=== PATIENT | female | born 1945 | race Caucasian/White ===

== ENCOUNTER 2016-12-14 11:56 | Day surgery (SDC) | payer MEDICARE, BC ==
[2016-12-14 13:40] VITALS: BP 129/74; PULSE 78; RESP 16; TEMP 98
--- NOTE | 2016-12-14 13:47 | US ---
Discontinued biopsy Following review of the patient's images and discussion with referring clinician the exam was aborted . No percutaneous biopsy performed.
== END 2016-12-14 13:05 | disposition home or self-care (01) ==
LOC: RADPROMAIN 11:56
PROVIDERS: ATTEND Internal Medicine Hematology & Oncology
DX: R19.07 Generalized intra-abdominal and pelvic swelling, mass and lump (principal); Z53.9 Procedure and treatment not carried out, unspecified reason; C34.31 Malignant neoplasm of lower lobe, right bronchus or lung; C77.3 Secondary and unspecified malignant neoplasm of axilla and upper limb lymph nodes; J44.9 Chronic obstructive pulmonary disease, unspecified; M06.9 Rheumatoid arthritis, unspecified; F32.9 Major depressive disorder, single episode, unspecified; Z87.891 Personal history of nicotine dependence; Z79.52 Long term (current) use of systemic steroids; Z79.51 Long term (current) use of inhaled steroids; Z79.899 Other long term (current) drug therapy; Z91.041 Radiographic dye allergy status
CPT/HCPCS: 76536

== ENCOUNTER → 2016-12-24 | Outpatient (CLI) | payer MEDICARE, BC ==
--- NOTE | 2016-12-26 08:43 | PE ---
EXAMINATION TYPE: PET CT fusion skull to thigh DATE OF EXAM: 12/24/2016 CLINICAL HISTORY: Lung cancer progress study. Completed treatment 2010. TECHNIQUE: Following the intravenous administration of 10.1 mCi of F-18 FDG, whole body images are performed from the skull base to the midthigh. Images are reviewed on the computer in the coronal, a xial, and sagittal planes. Reconstructed rotating images are created on independent workstation and reviewed on the computer. A non-contrast CT is performed in conjunction with the PET scan. COMPARISON: Prior PET/CT February 01, 2014. FINDINGS: SKULL BASE AND NECK: There is a hypermetabolic focus left of midline posterior nasopharynx on axial i mage 14 with max SUV of 6.32. Remainder of neck shows no suspicious hypermetabolic uptake. CHEST, MEDIASTINUM, AND HILAR REGION: There is background mild to moderate emphysematous change. Ther e is elevated left hemidiaphragm. No suspicious hypermetabolic uptake is present. Right basilar linea r scarring is seen, previously visualized nodule is not evident. ABDOMEN AND PELVIS: No suspicious hypermetabolic uptake is seen to the abdomen or pelvis. OSSEOUS STRUCTURES: There is increased uptake surrounding right shoulder, correlate for inflammatory process at this level. Increased uptake is also seen in the anterior left scapular muscles, correlate for inflammatory process at this level. There is increased uptake in bilateral thigh muscles correla te for inflammatory process. No suspicious hypermetabolic uptake is evident. OTHER CT: Coronary artery calcification is present which is noted marker for coronary artery disease. Cholecystectomy clips are seen. There is exophytic 3 cm cyst laterally to lower pole level right kidn ey. In the midline of the mid to lower abdomen there is ametabolic well-circumscribed 7.5 x 6.0 cm low de nse lesion with scattered punctate densities, suspect fluid collection or seroma related to surgical repair of ventral wall hernia with mesh coils. Other etiologies not excluded. No significant change f rom prior study noted making almost certainly benign. Uterus is surgically absent or markedly atrophic in appearance. Osseous structures are demineralized. IMPRESSION: 1. Single focus of hypermetabolic uptake posterior left nasopharynx without obvious mass, neoplasm no t entirely excluded, consider direct visualization. Otherwise no suspicious hypermetabolic uptake is seen to suggest recurrent lung malignancy. Previously visualized right basilar nodule is not clearly seen. 2. Correlate for multifocal myositis or muscular inflammation.
== END | disposition home or self-care (01) ==
LOC: RADPETMAIN 09:35
PROVIDERS: ATTEND Internal Medicine Hematology & Oncology
DX: R94.8 Abnormal results of function studies of other organs and systems (principal); C34.31 Malignant neoplasm of lower lobe, right bronchus or lung
CPT/HCPCS: 78815; A9552

== ENCOUNTER → 2018-09-19 | Outpatient (CLI) | payer MEDICARE, BC ==
--- NOTE | 2018-09-19 14:45 | CT ---
EXAMINATION TYPE: CT abdomen pelvis wo con DATE OF EXAM: 09/19/2018 HISTORY: Abdominal and pelvic swelling. History of lung cancer. CT DLP: 157.8 mGycm. Automated Exposure Control for Dose Reduction was Utilized. TECHNIQUE: CT scan of the abdomen and pelvis is performed with oral but without or IV contrast. COMPARISON: PET CT December 24, 2016 FINDINGS: Within the limitations of a non-contrast study, the following observations are made. LUNG BASES: Elevated left hemidiaphragm is redemonstrated. LIVER/GB: Cholecystectomy clips are redemonstrated. PANCREAS: No significant abnormality is seen. SPLEEN: No significant abnormality is seen. ADRENALS: No significant abnormality is seen. KIDNEYS: There is 3.2 cm simple appearing cyst laterally lower pole level right kidney axial image 28 . Scattered pelvic platelets are present bilaterally. BOWEL: Oral contrast reaches level of rectum. There is no suspicious small or large bowel dilatation. GENITAL ORGANS: No gross abnormality seen. LYMPH NODES: No greater than 1cm abdominal or pelvic lymph nodes are appreciated. OSSEOUS STRUCTURES: Osseous structures are demineralized. Moderate narrowing both hip joints is prese nt. OTHER: In the anterior abdominal wall there is redemonstration of low dense well-defined mass with sc attered metallic density or possible coils extending to right of midline measuring 8.1 x 7.2 by rough ly 10 cm craniocaudal dimension not significant changed in size or appearance from PET/CT. Etiology u ncertain, favor postsurgical fluid collection or seroma related to ventral wall hernia repair. Moderate vascular calcification of aorta extends into pelvic branch vessels. IMPRESSION: Stable anterior lower abdominal into upper pelvic well-defined low dense mass possible fl uid collection with punctate densities favoring metallic coils could account for symptoms of focal sw elling but no significant change from 2017 PET/CT where it is stated not changed from 2014 study. No new ascites is seen. No suspicious new or acute findings identified.
== END | disposition home or self-care (01) ==
LOC: RADCTMAIN 13:19
PROVIDERS: ATTEND Surgery Plastic and Reconstructive Surgery
DX: R19.09 Other intra-abdominal and pelvic swelling, mass and lump (principal); Z88.8 Allergy status to other drugs, medicaments and biological substances
CPT/HCPCS: 74176

== ENCOUNTER → 2019-03-13 | Outpatient (CLI) | payer MEDICARE, BC ==
--- NOTE | 2019-03-13 17:20 | US ---
EXAMINATION TYPE: US venous doppler duplex LE RT DATE OF EXAM: 03/13/2019 4:59 PM COMPARISON: NONE CLINICAL HISTORY: Swelling R22.31. SIDE PERFORMED: TECHNIQUE: The lower extremity deep venous system is examined utilizing real time linear array sonog misty with graded compression, doppler sonography and color-flow sonography. VESSELS IMAGED: External Iliac Vein (EIV) Common Femoral Vein Deep Femoral Vein Greater Saphenous Vein * Femoral Vein Popliteal Vein Small Saphenous Vein * Proximal Calf Veins (* superficial vessels) Right Leg: Negative for DVT Technologist attempted to phone office with Stat hold and call results, office closed. IMPRESSION: No evidence of deep venous thrombosis in the right leg. There is a 3 x 1 cm popliteal cys t.
== END | disposition home or self-care (01) ==
LOC: RADUSWWP 16:35
PROVIDERS: ATTEND Internal Medicine Hematology & Oncology
DX: M71.21 Synovial cyst of popliteal space [Baker], right knee (principal); R22.41 Localized swelling, mass and lump, right lower limb

== ENCOUNTER → 2019-07-31 | Outpatient (CLI) | payer MEDICARE, BC ==
--- NOTE | 2019-08-01 10:04 | XR ---
EXAMINATION TYPE: XR chest 2V DATE OF EXAM: 07/31/2019 COMPARISON: NONE TECHNIQUE: PA and lateral views submitted. HISTORY: Shortness of breath FINDINGS: The lungs are clear and there is no pneumothorax, pleural effusion, or focal pneumonia. Kyphosis of the spine with compression deformities involving the mid thoracic spine of indeterminate age. Hyperi nflation suggests COPD. No overt failure. Heart size normal. Linear density lateral margin right uppe r lobe is nonspecific. IMPRESSION: 1. No acute process. Correlate for COPD.
== END | disposition home or self-care (01) ==
LOC: RAD 16:14
PROVIDERS: ATTEND Internal Medicine Hematology & Oncology
DX: C34.31 Malignant neoplasm of lower lobe, right bronchus or lung (principal); D64.81 Anemia due to antineoplastic chemotherapy; G25.0 Essential tremor; R06.02 Shortness of breath
CPT/HCPCS: 71046

== ENCOUNTER → 2020-02-14 | Outpatient (CLI) | payer MEDICARE, BC ==
--- NOTE | 2020-02-14 13:54 | PE ---
EXAMINATION TYPE: PET CT fusion skull to thigh DATE OF EXAM: 02/14/2020 COMPARISON: Prior CT abdomen and pelvis September 19, 2018. Prior PET/CT December 24, 2016 and older studies. HISTORY: History of non-small cell lung cancer diagnosed 2010, progress study. TECHNIQUE: Following the intravenous administration of 11.6 mCi of F-18 FDG, whole body images are p erformed from the skull base to the midthigh. Images are reviewed on the computer in the coronal, ax ial, and sagittal planes. Reconstructed rotating images are created on independent workstation and r eviewed on the computer. A noncontrast CT is performed in conjunction with the PET scan. SCAN: Subsequent Scan FINDINGS: SKULL BASE AND NECK: No new areas of suspicious hypermetabolic uptake. CHEST, MEDIASTINUM, AND HILAR REGION: Persistent back from moderate to advanced underlying emphysemat ous change. Suspicious new right lower lobe hypermetabolic nodule measuring 1.9 x 1.8 cm axial image 92, max SUV is . Slightly elevated left hemidiaphragm redemonstrated. ABDOMEN AND PELVIS: No definitive areas of new hypermetabolic uptake. Normal excretion. Patient has v beto little intra-abdominal fat. Asymmetric atrophy of right fibrosis left thigh muscles with mild uptake presumed postinflammatory in the left-sided anterior hamstring muscle. OSSEOUS STRUCTURES: Persistent mild hypermetabolic uptake right shoulder level presumed postinflammat ory less prominent from most recent prior PET/CT. Max SUV is 3.82 at this level on current study. Mild hypermetabolic uptake along several consecutive left lateral and posterior lateral lower ribs wi thout definitive fracture is suspicious for healing nondisplaced subacute fractures. Correlate clinic ally. OTHER CT: Patient has continued marked significant weight loss with very little external intra-abdomi nal fat on current study. Some coronary artery calcification is present which is noted marked underly ing coronary artery disease. Cholecystectomy clips are redemonstrated. Moderate plaque in the abdominal aorta extends into iliac b ranch vessels. There is persistent low dense oval structure with coils anteriorly in the lower abdome n and upper pelvis presumed product of attempted hernia repair surgery. No suspicious hypermetabolic uptake at this level. Scattered pelvic phleboliths. Uterus surgically absent. Osseous structures are demineralized. There is exaggerated thoracic kyphosis. IMPRESSION: New suspicious hypermetabolic 1.9 cm right lower lobe nodule worrisome for active neoplas tic recurrence.
== END | disposition home or self-care (01) ==
LOC: RADPETMAIN 07:39
PROVIDERS: ATTEND Internal Medicine Hematology & Oncology
DX: C34.81 Malignant neoplasm of overlapping sites of right bronchus and lung (principal)
CPT/HCPCS: 78815; A9552

== ENCOUNTER 2020-12-20 23:16 | Inpatient (IN) | payer MEDICARE, BC ==
[2020-12-21] MEDS ORDERED: ALPRAZolam 1 MG TAB PO PRN (03:01)
[2020-12-21] MEDS: HYDROmorphone 0.5 MG/0.5 ML SYRINGE IVP PRN ×4 (03:34→23:30)
[2020-12-21] MEDS: SODIUM CHLORIDE 0.9% 1,000 ML IV SCH ×2 (03:35→20:40)
[2020-12-21 04:39] LABS: Appearance,Urine Clear (Clear); Bilirubin,Urine Negative (Negative); Blood,Urine Negative (Negative); Color,Urine Yellow; Glucose,Urine (UA) Negative (Negative); Ketones,Urine Negative (Negative); PH, Urine 6.5 (5.0-8.0); Protein,Urine Trace (Negative); Specific Gravity,Urine 1.015 (1.001-1.035); Urobilinogen,Urine <2.0 mg/dL (<2.0)
[2020-12-21 04:40] LABS: Leukocyte Esterase,Urine Small (Negative); Nitrite,Urine Negative (Negative)
[2020-12-21 04:45] LABS: RBC,Urine 1 /hpf (0-5); Squamous Epithelial Cell,Urine 1 /hpf (0-4); WBC,Urine 1 /hpf (0-5)
[2020-12-21 05:46] LABS: Basophils # (A) 0.1 k/uL (0-0.2); Basophils % (A) 1 %; Eosinophils # (A) 0.1 k/uL (0-0.7); Eosinophils % (A) 1 %; HCT 28.5 % (34.0-46.0); HGB 9.7 gm/dL (11.4-16.0); Lymphocytes # (A) 0.7 k/uL (1.0-4.8); Lymphocytes % (A) 9 %; Mean Platelet Volume 9.1; Monocytes # (A) 0.7 k/uL (0-1.0); Monocytes % (A) 9 %; Neutrophils # (A) 6.4 k/uL (1.3-7.7); Neutrophils % (A) 79 %; Platelet Count 132 k/uL (150-450); RBC 3.03 m/uL (3.80-5.40); RDW 13.2 % (11.5-15.5); WBC 8.1 k/uL (3.8-10.6)
[2020-12-21 06:09] LABS: ALT 12 U/L (4-34); AST 24 U/L (14-36); African American GFR (CKD) 39 (>60 ml/min/1.73 sqM); Albumin 3.3 g/dL (3.5-5.0); Albumin/Globulin Ratio 1.2; Alkaline Phosphatase 122 U/L (38-126); Anion Gap 7 mmol/L; Blood Urea Nitrogen 31 mg/dL (7-17); Calcium 8.9 mg/dL (8.4-10.2); Carbon Dioxide 20 mmol/L (22-30); Chloride 110 mmol/L (98-107); Globulin 2.7 g/dL; Glucose 96 mg/dL (74-99); Non-African American GFR(CKD) 34 (>60 ml/min/1.73 sqM); Potassium 4.5 mmol/L (3.5-5.1); Sodium 137 mmol/L (137-145); Total Bilirubin 0.3 mg/dL (0.2-1.3)
[2020-12-21] MEDS ORDERED: PANTOPRAZOLE 40 MG TABLET PO SCH (07:30)
[2020-12-21] MEDS ORDERED: buPROPion XL 150 MG TAB.ER.24H PO SCH (09:00)
[2020-12-21] MEDS ORDERED: FUROSEMIDE 20 MG TAB PO SCH (09:00)
[2020-12-21] MEDS: CITALOPRAM HYDROBROMIDE 20 MG TAB PO SCH (09:23)
[2020-12-21] MEDS: predniSONE 10 MG TAB PO SCH (09:23)
[2020-12-21] MEDS ORDERED: MECLIZINE 25 MG TAB PO PRN (09:58)
--- NOTE | 2020-12-21 14:23 | US ---
EXAMINATION TYPE: US venous doppler duplex LE RT DATE OF EXAM: 12/21/2020 2:11 PM COMPARISON: US 03/13/19 CLINICAL HISTORY: swelling and redness. SIDE PERFORMED: Right TECHNIQUE: The lower extremity deep venous system is examined utilizing real time linear array sonog misty with graded compression, doppler sonography and color-flow sonography. VESSELS IMAGED: Common Femoral Vein Deep Femoral Vein Greater Saphenous Vein * Femoral Vein Popliteal Vein Small Saphenous Vein * Proximal Calf Veins (* superficial vessels) Right Leg: Negative for DVT IMPRESSION: Grayscale, color doppler, spectral doppler imaging performed of the deep veins of the lo wer extremities. There is normal flow, compressibility, vascular waveforms.
--- NOTE | 2020-12-21 14:40 | P.HPIM ---
History of Present Illness 75-year-old the female was admitted after she has a fracture of the left humerus and a thoracic vertebral fracture. Patient does have history of Mnire's disease and occasionally gets a dizzy and vertiginous and patient had such an episode yesterday which led to a fall patient denied any syncopal episode. Patient also has bilateral chronic venous insufficiency but patient has increasing swelling in the right leg more than left has of which obtained a Doppler of the right lower extremity which did not show any DVT. Patient denied any fever chills. Patient does appear to have chronic kidney disease and is on diuretics for venous insufficiency patient baseline creatinine appears to be around 1.2- 1.3 Review of Systems REVIEW OF SYSTEMS: CONSTITUTIONAL: No fever, no malaise, no fatigue. HEENT: No recent visual problems or hearing problems. Denied any sore throat. CARDIOVASCULAR: No chest pain, orthopnea, PND, no palpitations, no syncope. PULMONARY: No shortness of breath, no cough, no hemoptysis. GASTROINTESTINAL: No diarrhea, no nausea, no vomiting, no abdominal pain. NEUROLOGICAL: No headaches, no weakness, no numbness. HEMATOLOGICAL: Denies any bleeding or petechiae. GENITOURINARY: Denies any burning micturition, frequency, or urgency. MUSCULOSKELETAL/RHEUMATOLOGICAL: Pain in the left arm ENDOCRINE: Denies any polyuria or polydipsia. The rest of the 14-point review of systems is negative. Past Medical History Past Medical History: Cancer, COPD, Rheumatoid Arthritis (RA) Additional Past Medical History / Comment(s): mengieres disease, lymph node cancer, lung cancer stage 3B History of Any Multi-Drug Resistant Organisms: None Reported Past Surgical History: Section, Cholecystectomy, Ear Surgery, Hernia Repair, Hysterectomy, Tonsillectomy Additional Past Surgical History / Comment(s): umbilical hernia 2010, ruptured cyst, axillary rt lymph nodes - positive for CA. rt knee arthroscopy Past Anesthesia/Blood Transfusion Reactions: Postoperative Nausea & Vomiting (PONV) Past Psychological History: Anxiety, Depression, Panic Disorder Smoking Status: Current every day smoker - Past Family History Father Family Medical History: No Reported History Medications and Allergies Home Medications Medication Instructions Recorded Confirmed Type ALPRAZolam [Xanax] 1 mg PO TID PRN 12/13/16 12/21/20 History Citalopram Hydrobromide 20 mg PO DAILY 12/13/16 12/21/20 History [Citalopram HBr] Bumetanide 2 mg PO BID PRN 12/21/20 12/21/20 History Furosemide [Lasix] 20 mg PO DAILY 12/21/20 12/21/20 History Meclizine HCl 25 mg PO DAILY PRN 12/21/20 12/21/20 History Omeprazole 20 mg PO BID 12/21/20 12/21/20 History buPROPion SR [Wellbutrin Sr] 150 mg PO DAILY 12/21/20 12/21/20 History Allergies Allergy/AdvReac Type Severity Reaction Status Date / Time Iodinated Contrast Media Allergy Dyspnea Verified 12/21/20 07:55 pseudoephedrine Allergy Rash/Hives Verified 12/21/20 07:55 NSAIDS (Non-Steroidal AdvReac Nausea Verified 12/21/20 07:55 Anti-Inflamma Physical Exam Vitals: Vital Signs Temp Pulse Resp BP Pulse Ox 12/21/20 11:40 98.3 F 81 18 105/68 93 L 12/21/20 04:33 98.9 F 74 14 110/75 95 12/21/20 01:29 98.7 F 81 16 106/93 91 L Intake and Output 12/20/20 12/21/20 12/21/20 22:59 06:59 14:59 Other: Voiding Method Bedpan Weight 45 kg PHYSICAL EXAMINATION: GENERAL: The patient is alert and oriented x3, not in any acute distress. Well developed, well nourished. HEENT: Pupils are round and equally reacting to light. EOMI. No scleral icterus. No conjunctival pallor. Normocephalic, atraumatic. No pharyngeal erythema. No thyromegaly. CARDIOVASCULAR: S1 and S2 present. No murmurs, rubs, or gallops. PULMONARY: Chest is clear to auscultation, no wheezing or crackles. ABDOMEN: Soft, nontender, nondistended, normoactive bowel sounds. No palpable organomegaly. MUSCULOSKELETAL: Has a left arm sling EXTREMITIES: No cyanosis, clubbing, or pedal edema which is worse in the right leg NEUROLOGICAL: Gross neurological examination did not reveal any focal deficits. SKIN: Redness bilateral lower extremities Results CBC & Chem 7: 12/21/20 04:43 12/21/20 04:43 Labs: Abnormal Lab Results - Last 24 Hours (Table) 12/21/20 12/21/20 Range/Units 04:43 04:43 RBC 3.03 L (3.80-5.40) m/uL Hgb 9.7 L (11.4-16.0) gm/dL Hct 28.5 L (34.0-46.0) % Plt Count 132 L (150-450) k/uL Lymphocytes # 0.7 L (1.0-4.8) k/uL Chloride 110 H (98-107) mmol/L Carbon Dioxide 20 L (22-30) mmol/L BUN 31 H (7-17) mg/dL Creatinine 1.50 H (0.52-1.04) mg/dL Total Protein 6.0 L (6.3-8.2) g/dL Albumin 3.3 L (3.5-5.0) g/dL Thrombosis Risk Factor Assmnt - Choose All That Apply Any of the Below Risk Factors Present?: Yes Each Factor Represents 1 point: Abnormal pulmonary function (COPD) Other Risk Factors: Yes Each Risk Factor Represents 3 Points: Age 75 years or older Each Risk Factor Represents 5 Points: Hip, pelvis, or leg fracture (< 1 month) Thrombosis Risk Factor Assessment Total Risk Factor Score: 9 Thrombosis Risk Factor Assessment Level: High Risk Assessment and Plan Plan: Fall: Secondary to vertigo from Mnire's disease which is chronic --Left humerus fracture: Orthopedic surgery was consulted patient pain is better controlled at this time. -Acute renal failure secondary to excess diuretics which will be held and patient is presently receiving IV fluids repeat basic metabolic profile tomorrow -Chronic kidney disease stage II -History of lung cancer patient is presently receiving treatment for that patient is presently on opdivo. -Rheumatoid arthritis -COPD without any acute exacerbation -Thoracic vertebral compression fracture physical Patient therapy will be consulted orthopedic surgery will evaluate the patient -Depression -Bilateral lower extremity venous stasis. Patient will benefit from compression socks since patient has acute renal failure and holding off on the diuretics. -DVT prophylaxis with subcutaneous heparin
[2020-12-21] MEDS ORDERED: ACETAMINOPHEN TAB 325 MG TAB PO PRN (14:41)
[2020-12-21] MEDS ORDERED: traMADol 50 MG TAB PO PRN (14:41)
--- NOTE | 2020-12-21 15:30 | P.CONS ---
History of Present Illness - Reason for Consult Consult date: 12/21/20 NSCLCA Requesting physician: Jorge Alberto Grier - Chief Complaint Fall - History of Present Illness Mrs. Khalil is a patient known to Dr. Freitas for diagnosis and treatment of stage III B non-small cell lung carcinoma ( Adenocarcinoma, Dx 12/2010 ) She received concurrent radiation therapy and chemotherapy in the form of Carboplatin and Alimta. A total of 6 cycles were completed in April of 2011. Subsequently the patient started maintenance Alimta, 4 cycles given , tolerated very poorly, and since then stopped. She reports increasing arthralgias in past few weeks. The patient noted an enlarging small lesion in L Axilla which have been present for years, but bigger now, also noted a hard area in her abdominal Scar ( Had Sx done bt Dr Murillo ). Feels very well, increased energy and appetite. The patient reported having increasing arthralgias. Lesionn in axilla about the same. She had a PET Scan done: New activity in L Axilla coresssponding to xavier noted. Samara had bilateral axillary LN biopsies by Dr Lujan at [facility] on Apr 05: No Malignancy She lost her to a sudden heart attack. C/O increasing arthropathy ( she is known to have RA ) Recent PET Scan : Increase activity in spine, but MRI was suggestive of benign process, ? Inflamatory in origin to be so active on PET study. C/O increasing cough with small amount of magda sputom, no fever/chills, continues to smoke against advice. Stopped MTX due to intolerance, will be seen by Dr Paulino soon. Having increasing Edema in R lower ext with minimal discomfort in R Knee. Follow up CT Scan and PET Scan are worrisome for rec Cancer, she noted painful enlarging R Axillary LN. No respiratory symptoms. Still smoking against advise. R Axillary LN Bx : Metastatic Carcinoma , C/W lung primary. Denied Anorexia/weight loss. Feels Ok Overall. She was found to have ALK & EGFR negative studies, started on Carboplatinum+Taxol : Developed grade II emetogenic toxicity, as well as , constipation ; all resolved. Had 5 cycles of Carboplatinum+Taxol, C/O fatigue and episodes of stools incontinence !! No chest pain or SOB, arthritis still severe (RA). C/O severe generalized fatigue. Follow up Ct Scan : improved. C/O Dry L eye since Chemotherapy, not improved, was found to have cataract and surgery recommended. Follow up CT Scan : minute increase in pulmonary nodule ( Clinically insignificant). Recent CT Scan (December 2019) > stable 02/20/20: PET Scan : Only uptake is RLL nodule stable for years on CT Scans Last OPdivo was in July 2019, She was last seen in Telemedicine visit in 05/2020, was recommended to follow-up and restart opdivo, although patient has canceled last couple appointments and lost to follow-up. She now presents to hospital after a fall anf fracture. SHe admits to dizziness, and more than one recent fall. Her renal function is increased therefore will await contrasted i maging until after adequately hydrated. Review of Systems All systems: negative Constitutional: Reports as per HPI Past Medical History Past Medical History: Cancer, COPD, Rheumatoid Arthritis (RA) Additional Past Medical History / Comment(s): mengieres disease, lymph node cancer, lung cancer stage 3B History of Any Multi-Drug Resistant Organisms: None Reported Past Surgical History: Section, Cholecystectomy, Ear Surgery, Hernia Repair, Hysterectomy, Tonsillectomy Additional Past Surgical History / Comment(s): umbilical hernia 2009, ruptured cyst, axillary rt lymph nodes - positive for CA. rt knee arthroscopy Past Anesthesia/Blood Transfusion Reactions: Postoperative Nausea & Vomiting (PONV) Past Psychological History: Anxiety, Depression, Panic Disorder Smoking Status: Current every day smoker - Past Family History Father Family Medical History: No Reported History Medications and Allergies Home Medications Medication Instructions Recorded Confirmed Type ALPRAZolam [Xanax] 1 mg PO TID PRN 12/13/16 12/21/20 History Citalopram Hydrobromide 20 mg PO DAILY 12/13/16 12/21/20 History [Citalopram HBr] Bumetanide 2 mg PO BID PRN 12/21/20 12/21/20 History Furosemide [Lasix] 20 mg PO DAILY 12/21/20 12/21/20 History Meclizine HCl 25 mg PO DAILY PRN 12/21/20 12/21/20 History Omeprazole 20 mg PO BID 12/21/20 12/21/20 History buPROPion SR [Wellbutrin Sr] 150 mg PO DAILY 12/21/20 12/21/20 History Allergies Allergy/AdvReac Type Severity Reaction Status Date / Time Iodinated Contrast Media Allergy Dyspnea Verified 12/21/20 07:55 pseudoephedrine Allergy Rash/Hives Verified 12/21/20 07:55 NSAIDS (Non-Steroidal AdvReac Nausea Verified 12/21/20 07:55 Anti-Inflamma Physical Exam Vitals: Vital Signs Temp Pulse Resp BP Pulse Ox 12/21/20 04:33 98.9 F 74 14 110/75 95 12/21/20 01:29 98.7 F 81 16 106/93 91 L Intake and Output 12/20/20 12/21/20 12/21/20 22:59 06:59 14:59 Other: Weight 45 kg Poor historian, NAD Head NCAT Lungs: DIminished, No increased effort Heart RR Abdom: NTND Ext: Injury from fall wrist - Constitutional General appearance: cooperative Results CBC & Chem 7: 12/21/20 04:43 12/21/20 04:43 Labs: Abnormal Lab Results - Last 24 Hours (Table) 12/21/20 12/21/20 Range/Units 04:43 04:43 RBC 3.03 L (3.80-5.40) m/uL Hgb 9.7 L (11.4-16.0) gm/dL Hct 28.5 L (34.0-46.0) % Plt Count 132 L (150-450) k/uL Lymphocytes # 0.7 L (1.0-4.8) k/uL Chloride 110 H (98-107) mmol/L Carbon Dioxide 20 L (22-30) mmol/L BUN 31 H (7-17) mg/dL Creatinine 1.50 H (0.52-1.04) mg/dL Total Protein 6.0 L (6.3-8.2) g/dL Albumin 3.3 L (3.5-5.0) g/dL Assessment and Plan (1) Non-small cell lung cancer (NSCLC) Current Visit: Yes Status: Acute Code(s): C34.90 - MALIGNANT NEOPLASM OF UNSP PART OF UNSP BRONCHUS OR LUNG SNOMED Code(s): 292073164 (2) Fall Current Visit: Yes Status: Acute Code(s): W19.XXXA - UNSPECIFIED FALL, INITIAL ENCOUNTER SNOMED Code(s): 2699565 Plan: Plan to continue adequate hydration and further assess for metastaic recurrence to brain with contrasted MRI or CT (MRI Preferred) Normocytic anemia: - WOrk-up in progress Acute Renal Insufficiency: - Likely prerenal dehydration Recurrent Falls:: NSCLCA: - Has not followed up since last year Primary to regarding other acute issues Physician attest: I have completed the full history and physical aand agree with above dictation, dictated as a ascribe
[2020-12-21] MEDS ORDERED: NON FORMULARY DRUG (Omeprazole [Omeprazole] 20 MG Tablet.Dr) PO SCH (21:00)
[2020-12-22] MEDS: SODIUM CHLORIDE 0.9% 1,000 ML IV SCH ×2 (05:30→19:40)
[2020-12-22] MEDS: HYDROmorphone 0.5 MG/0.5 ML SYRINGE IVP PRN ×3 (08:38→22:47)
[2020-12-22] MEDS: predniSONE 10 MG TAB PO SCH (08:39)
[2020-12-22] MEDS: CITALOPRAM HYDROBROMIDE 20 MG TAB PO SCH (08:39)
[2020-12-22] MEDS: buPROPion SR 150 MG TABLET.ER PO SCH (08:39)
[2020-12-22] MEDS: PANTOPRAZOLE 40 MG TABLET PO SCH (08:39)
[2020-12-22 10:08] LABS: HCT 28.1 % (34.0-46.0); HGB 9.2 gm/dL (11.4-16.0); MCH 31.3 pg (25.0-35.0); MCHC 32.6 g/dL (31.0-37.0); MCV 95.9 fL (80.0-100.0); Mean Platelet Volume 9.5; Platelet Count 116 k/uL (150-450); RBC 2.93 m/uL (3.80-5.40); RDW 13.3 % (11.5-15.5); WBC 6.6 k/uL (3.8-10.6)
[2020-12-22 10:24] LABS: African American GFR (CKD) 43 (>60 ml/min/1.73 sqM); Anion Gap 7 mmol/L; Blood Urea Nitrogen 24 mg/dL (7-17); Calcium 8.6 mg/dL (8.4-10.2); Carbon Dioxide 18 mmol/L (22-30); Chloride 115 mmol/L (98-107); Glucose 104 mg/dL (74-99); Non-African American GFR(CKD) 37 (>60 ml/min/1.73 sqM); Potassium 4.1 mmol/L (3.5-5.1); Sodium 140 mmol/L (137-145)
--- NOTE | 2020-12-22 11:13 | P.CNOR ---
History of Present Illness - HPI Consult date: 12/22/20 History of present illness: This is a 75-year-old female who is admitted after a fall. Patient states that she has fallen twice in the last 2 weeks. Orthopedics is consulted due to left proximal humerus fracture. Patient states that she does have pain if she tries to move the left upper extremity. Patient denies any numbness, weakness or tingling. Patient's past medical history significant for COPD, rheumatoid arthritis, Mnire's disease and a lung cancer. Review of Systems See HPI. Past Medical History Past Medical History: Cancer, COPD, Rheumatoid Arthritis (RA) Additional Past Medical History / Comment(s): mengieres disease, lymph node cancer, lung cancer stage 3B History of Any Multi-Drug Resistant Organisms: None Reported Past Surgical History: Section, Cholecystectomy, Ear Surgery, Hernia Repair, Hysterectomy, Tonsillectomy Additional Past Surgical History / Comment(s): umbilical hernia 2009, ruptured cyst, axillary rt lymph nodes - positive for CA. rt knee arthroscopy Past Anesthesia/Blood Transfusion Reactions: Postoperative Nausea & Vomiting (PONV) Past Psychological History: Anxiety, Depression, Panic Disorder Smoking Status: Current every day smoker - Past Family History Father Family Medical History: No Reported History Medications and Allergies Home Medications Medication Instructions Recorded Confirmed Type ALPRAZolam [Xanax] 1 mg PO TID PRN 12/13/16 12/21/20 History Citalopram Hydrobromide 20 mg PO DAILY 12/13/16 12/21/20 History [Citalopram HBr] Bumetanide 2 mg PO BID PRN 12/21/20 12/21/20 History Furosemide [Lasix] 20 mg PO DAILY 12/21/20 12/21/20 History Meclizine HCl 25 mg PO DAILY PRN 12/21/20 12/21/20 History Omeprazole 20 mg PO BID 12/21/20 12/21/20 History buPROPion SR [Wellbutrin Sr] 150 mg PO DAILY 12/21/20 12/21/20 History Allergies Allergy/AdvReac Type Severity Reaction Status Date / Time Iodinated Contrast Media Allergy Dyspnea Verified 12/21/20 07:55 pseudoephedrine Allergy Rash/Hives Verified 12/21/20 07:55 NSAIDS (Non-Steroidal AdvReac Nausea Verified 12/21/20 07:55 Anti-Inflamma Physical Examination On exam patient is resting comfortably in bed in no acute distress. Patient is alert and oriented 3. There has a sling in place to the left upper extremity. There is mild swelling and ecchymosis over the left shoulder and upper arm. Left upper extremity is warm and well perfused. Skin intact over the left shoulder. Radial pulse is 2+. Sensation intact. Patient has good range of motion of the left wrist and hand. Neurovascular status and circulatory status are intact. Results X-rays of the left shoulder reveal fracture of the left proximal humerus. - Labs Labs: Abnormal Lab Results - Last 24 Hours (Table) 12/22/20 12/22/20 Range/Units 09:38 09:38 RBC 2.93 L (3.80-5.40) m/uL Hgb 9.2 L (11.4-16.0) gm/dL Hct 28.1 L (34.0-46.0) % Plt Count 116 L (150-450) k/uL Chloride 115 H (98-107) mmol/L Carbon Dioxide 18 L (22-30) mmol/L BUN 24 H (7-17) mg/dL Creatinine 1.38 H (0.52-1.04) mg/dL Glucose 104 H (74-99) mg/dL H & H 12/21/20 12/22/20 Range/Units 04:43 09:38 Hgb 9.7 L 9.2 L (11.4-16.0) gm/dL Hct 28.5 L 28.1 L (34.0-46.0) % Result Diagrams: 12/22/20 09:38 12/22/20 09:38 Assessment and Plan (1) Closed fracture of left proximal humerus Current Visit: Yes Status: Acute Code(s): S42.202A - UNSP FRACTURE OF UPPER END OF LEFT HUMERUS, INIT FOR CLOS FX SNOMED Code(s): 25941296 (2) Fall Current Visit: Yes Status: Acute Code(s): W19.XXXA - UNSPECIFIED FALL, INITIAL ENCOUNTER SNOMED Code(s): 3860962 Plan: 1. Maintain sling to left upper extremity. 2. Rest and ice for swelling. 3. Continue pain control. 4. No surgical intervention planned. Patient is to follow-up with [facility] in one week.
--- NOTE | 2020-12-22 13:36 | P.CNOR ---
History of Present Illness - [facility] Consult date: 12/22/20 Requesting physician: Sinai Sofia Consult reason: fracture (Thoracic compression fracture deformity) History of present illness: Patient is a pleasant 75-year-old female who is seen and examined at the after consultation was placed in regards to her thoracic compression fracture deformity. She does admit to pain in her thoracic spine. She states she has some pain in her lower lumbar spine after a previous fall. Patient was transferred from [facility]. CT imaging taken at [facility] of the abdomen and pelvis showed thoracic compression fracture deformities. She states she does have a history of multiple falls. She has had injury to her spi ne in the past. She is unsure if she had been diagnosed with compression fracture deformities in the past. At her recent fall she was also found to have a left proximal humerus fracture. She does have chronic difficulties with her lower extremities. She states she's been treated for cellulitis in the right lower extremity. Patient also has a significant medical history which includes stage III non-small cell lung cancer. She previously followed with oncology but had not had any follow-up evaluation since May 2020 via telephone medicine at that time. Patient's last dose of OPdivo was in July 2019. She is being seen by oncology during this admission. Oncology is planning to obtain MRI of the brain with contrast to evaluate metastatic recurrence. Past Medical History Past Medical History: Cancer, COPD, Rheumatoid Arthritis (RA) Additional Past Medical History / Comment(s): mengieres disease, lymph node cancer, lung cancer stage 3B History of Any Multi-Drug Resistant Organisms: None Reported Past Surgical History: Section, Cholecystectomy, Ear Surgery, Hernia Repair, Hysterectomy, Tonsillectomy Additional Past Surgical History / Comment(s): umbilical hernia 2010, ruptured cyst, axillary rt lymph nodes - positive for CA. rt knee arthroscopy Past Anesthesia/Blood Transfusion Reactions: Postoperative Nausea & Vomiting (PONV) Past Psychological History: Anxiety, Depression, Panic Disorder Smoking Status: Current every day smoker - Past Family History Father Family Medical History: No Reported History Medications and Allergies Home Medications Medication Instructions Recorded Confirmed Type ALPRAZolam [Xanax] 1 mg PO TID PRN 12/13/16 12/21/20 History Citalopram Hydrobromide 20 mg PO DAILY 12/13/16 12/21/20 History [Citalopram HBr] Bumetanide 2 mg PO BID PRN 12/21/20 12/21/20 History Furosemide [Lasix] 20 mg PO DAILY 12/21/20 12/21/20 History Meclizine HCl 25 mg PO DAILY PRN 12/21/20 12/21/20 History Omeprazole 20 mg PO BID 12/21/20 12/21/20 History buPROPion SR [Wellbutrin Sr] 150 mg PO DAILY 12/21/20 12/21/20 History Allergies Allergy/AdvReac Type Severity Reaction Status Date / Time Iodinated Contrast Media Allergy Dyspnea Verified 12/21/20 07:55 pseudoephedrine Allergy Rash/Hives Verified 12/21/20 07:55 NSAIDS (Non-Steroidal AdvReac Nausea Verified 12/21/20 07:55 Anti-Inflamma Physical Examination Physical exam: Patient is awake, alert, and oriented 3 Vital signs stable Good chest excursion with deep inspiration and expiration Abdomen soft nontender Examination of thoracic and lumbar spine reveals skin is intact with no abrasions, lacerations, or bruises; no erythema, purulence or signs of infection Some generalized pain with palpation of the thoracic and lumbar spines Patient does have difficulty with active range of motion of the bilateral lower extremities Patient is able to perform some dorsiflexion and plantarflexion bilaterally but movements are slow Patient is able perform some hip flexion bilaterally and lift legs off the bed independently but movements are slow Evidence of swelling below the right knee that has appeared to improve No signs or symptoms of DVT; no calf pain No pain with internal and external rotation of the hips bilaterally Neurovascularly intact Significant bruising over the left chin and cheek Results Pertinent studies: CT imaging abdomen and pelvis taken at [facility] on 12/20/2020: Evidence of multiple compression fracture deformities that appeared to be at T7, T8, T9, T11, T12, and L1 of indeterminate age; no spondylolisthesis; I do not see any other lumbar compression fracture deformity; no obvious fracture of the sacrum - Labs Labs: Abnormal Lab Results - Last 24 Hours (Table) 12/22/20 12/22/20 Range/Units 09:38 09:38 RBC 2.93 L (3.80-5.40) m/uL Hgb 9.2 L (11.4-16.0) gm/dL Hct 28.1 L (34.0-46.0) % Plt Count 116 L (150-450) k/uL Chloride 115 H (98-107) mmol/L Carbon Dioxide 18 L (22-30) mmol/L BUN 24 H (7-17) mg/dL Creatinine 1.38 H (0.52-1.04) mg/dL Glucose 104 H (74-99) mg/dL H & H 12/21/20 12/22/20 Range/Units 04:43 09:38 Hgb 9.7 L 9.2 L (11.4-16.0) gm/dL Hct 28.5 L 28.1 L (34.0-46.0) % Result Diagrams: 12/22/20 09:38 12/22/20 09:38 Assessment and Plan Assessment: Assessment: Thoracic back pain Status post multiple falls Low back pain Multiple compression fracture deformities that appeared to be at T7, T8, T9, T11, T12, and L1 of indeterminate age Left proximal humerus fracture Stage III non-small cell lung cancer (1) Thoracic compression fracture Current Visit: Yes Status: Acute Code(s): S22.000A - WEDGE COMPRESSION FRACTURE OF UNSP THORACIC VERTEBRA, INIT SNOMED Code(s): 456310968 (2) L1 vertebral fracture Current Visit: Yes Status: Acute Code(s): S32.019A - UNSP FRACTURE OF FIRST LUMBAR VERTEBRA, INIT FOR CLOS FX SNOMED Code(s): 297873437 (3) Status post fall Current Visit: Yes Status: Acute Code(s): Z91.81 - HISTORY OF FALLING SNOMED Code(s): 815260579 (4) Thoracic back pain Current Visit: Yes Status: Acute Code(s): M54.6 - PAIN IN THORACIC SPINE SNOMED Code(s): 855708683 (5) Lumbar pain Current Visit: Yes Status: Acute Code(s): M54.5 - LOW BACK PAIN SNOMED Code(s): 642256385 (6) Closed fracture of left proximal humerus Current Visit: Yes Status: Acute Code(s): S42.202A - UNSP FRACTURE OF UPPER END OF LEFT HUMERUS, INIT FOR CLOS FX SNOMED Code(s): 54058185 (7) Non-small cell lung cancer (NSCLC) Current Visit: Yes Status: Acute Code(s): C34.90 - MALIGNANT NEOPLASM OF UNSP PART OF UNSP BRONCHUS OR LUNG SNOMED Code(s): 185343826 Plan: Plan: 1. After reviewing of CT imaging, further discussion with the patient, and physical exam of the patient, we will currently plan to obtain an MRI of the thoracic spine with and without contrast for further evaluation. This MRI should include L1. The patient does have multiple compression fracture deformities of indeterminate age at T7, T8, T9, T11, T12, and L1. She does have a history of multiple falls. It'll be difficult to predict that all 6 of these fractures would have happened at one time or from one fall. She also has a significant history which includes stage III non-small cell lung cancer. Given her significant history along with multiple fractures and her history of freq uent falls, we feel this MRI is necessary to evaluate the chronicity of her fractures and also rule out the possibility of metastatic disease. We did discuss patient will remain on bedrest until the thoracic MRI is complete and we are able to review this imaging. We will plan to follow up with the patient to discuss the MRI results following the completion of her MRI. 2. Patient will continue with oncology for further evaluation and treatment in regards to her stage III non-small cell lung cancer. Patient is currently planning to have a brain MRI with contrast for further evaluation to assess possible metastatic recurrence. 3. Patient will continue conservative treatment for her left proximal humerus fracture and will continue with a sling as advised by Dr. Stevie Rao. Time with Patient: Greater than 30 (Including obtaining history, physical examination, reviewing of imaging, and dictation.)
--- NOTE | 2020-12-22 14:44 | P.PN ---
Subjective Progress Note Date: 12/22/20 Principal diagnosis: hx nsclca fall Awaiting renal function to improve and will proceed with MRI brain and CT staging Objective - Vital Signs Vital signs: Vital Signs Temp 98.4 F 12/22/20 12:11 Pulse 77 12/22/20 12:11 Resp 16 12/22/20 12:11 BP 105/68 12/22/20 12:11 Pulse Ox 96 12/22/20 05:00 Intake & Output 12/21/20 12/22/20 12/22/20 18:59 06:59 18:59 Intake Total 1040 600 Balance 1040 600 Intake: Intake, IV Titration 640 600 Amount Sodium Chloride 0.9% 1, 640 600 000 ml @ 75 mls/hr IV . [id number] PATIENCE Rx#:[id number] Oral 400 Other: Voiding Method Bedpan Bedpan - Exam Poor historian, Left eye black Arm sling NAD Head NCAT Lungs: DIminished, No increased effort Heart RR Abdom: NTND Ext: Injury from fall wrist - Labs CBC & Chem 7: 12/22/20 09:38 12/22/20 09:38 Labs: Abnormal Lab Results - Last 24 Hours (Table) 12/22/20 12/22/20 Range/Units 09:38 09:38 RBC 2.93 L (3.80-5.40) m/uL Hgb 9.2 L (11.4-16.0) gm/dL Hct 28.1 L (34.0-46.0) % Plt Count 116 L (150-450) k/uL Chloride 115 H (98-107) mmol/L Carbon Dioxide 18 L (22-30) mmol/L BUN 24 H (7-17) mg/dL Creatinine 1.38 H (0.52-1.04) mg/dL Glucose 104 H (74-99) mg/dL Assessment and Plan (1) Non-small cell lung cancer (NSCLC) Current Visit: Yes Status: Acute Code(s): C34.90 - MALIGNANT NEOPLASM OF UNSP PART OF UNSP BRONCHUS OR LUNG SNOMED Code(s): 620536696 (2) Fall Current Visit: Yes Status: Acute Code(s): W19.XXXA - UNSPECIFIED FALL, INITIAL ENCOUNTER SNOMED Code(s): 6837802 Plan: Plan to continue adequate hydration and further assess for metastaic recurrence to brain with contrasted MRI or CT (MRI Preferred) Normocytic anemia: - WOrk-up in progress Acute Renal Insufficiency: - Likely prerenal dehydration Recurrent Falls:: NSCLCA: - Has not followed up since last year Primary to regarding other acute issues Plan: - Bone scan - Recheck renal function in am - MRI brain and CT staging Physician attest: I have completed the full history and physical aand agree with above dictation, dictated as a ascribe
--- NOTE | 2020-12-22 20:05 | P.PN ---
Progress Note - Text Progress Note Date: 12/22/20 Presenting complaint: Dizziness Hospital course: 75-year-old patient of Dr. Arndt. Chronic stable medical conditions include COPD, rheumatoid arthritis, lung cancer stage IIIB in remission., Anxiety depression. Patient has long-standing history of dizziness. Presented with episode of fall, resulting in L1 vertebral fracture and a closed fracture of the left proximal humerus. Left arm in a sling. Oral intake fair. Today: Laying in bed. Left arm in a sling. Appetite is fair. Some pain is present. Review of systems: GEN.: Tired EYES: None HEENT: None NECK: None RESPIRATORY: None CARDIOVASCULAR: None GASTROINTESTINAL: None GENITOURINARY: [None MUSCULOSKELETAL: Left arm and back pain LYMPHATICS: None HEMATOLOGICAL: None PSYCHIATRY: None NEUROLOGICAL: None INVESTIGATIONS, reviewed in the clinical context: WBC 6.6 hemoglobin 9.2 platelets 16 potassium 4.1 BUN 24 creatinine 1.38 albumin 3.3 Assessment and plan: -Chronic dizziness from Mnire's disease Rule out additional BPPV and orthostatics. Check orthostatics -Mild protein calorie malnutrition Nutritional supplements -COPD in a current smoker Symptoms controlled -Anxiety depression otherwise specified Continue with Wellbutrin, Celexa, Xanax -GERD Continue with omeprazole -Stage IIIB non-small cell lung carcinoma, status post radiation treatment and chemotherapy. Currently appears to be in remission. Recent PET scan was found to be unremarkable. Being followed by oncology -Chronic nicotine dependence patient cigarette smoker -Metabolic acidosis from chronic kidney disease Add sodium bicarbonate -Chronic kidney disease, stage III Follow renal function -Anemia of chronic kidney disease -Thrombocytopenia, withbicytopenia -Multiple compression fracture deformities at T7, T8, T9, T11, T12 and L1 on of indeterminate age Follow with orthopedic spine. Conservative management. Pain control. -Closed fracture of left proximal humerus secondary to fall. Has a left arm sling. No surgical intervention. -Chronic rheumatoid arthritis -Fall precautions Patient's diuretic continues to be held. IV fluids. Add sodium bicarbonate. Check orthostatics. We'll also give Johnson maneuver instructions to see if that helps with symptoms. Care was discussed with the patient and daughter at the bedside.
[2020-12-22] MEDS ORDERED: ENOXAPARIN 40 MG/0.4 ML SYRINGE SQ SCH (20:15)
[2020-12-22] MEDS: NICOTINE 21MG/24HR PATCH TRANSDERM SCH (20:17)
[2020-12-22] MEDS: SODIUM BICARBONATE TAB 650 MG TAB PO SCH (21:38)
[2020-12-23] MEDS: SODIUM CHLORIDE 0.9% 1,000 ML IV SCH (05:45)
[2020-12-23 07:02] LABS: African American GFR (CKD) 42 (>60 ml/min/1.73 sqM); Anion Gap 8 mmol/L; Blood Urea Nitrogen 21 mg/dL (7-17); Calcium 8.8 mg/dL (8.4-10.2); Carbon Dioxide 16 mmol/L (22-30); Chloride 115 mmol/L (98-107); Glucose 70 mg/dL (74-99); Non-African American GFR(CKD) 36 (>60 ml/min/1.73 sqM); Potassium 4.4 mmol/L (3.5-5.1); Sodium 139 mmol/L (137-145)
[2020-12-23] MEDS: PANTOPRAZOLE 40 MG TABLET PO SCH (08:41)
[2020-12-23] MEDS: NICOTINE 21MG/24HR PATCH TRANSDERM SCH (08:41)
[2020-12-23] MEDS: CITALOPRAM HYDROBROMIDE 20 MG TAB PO SCH (08:41)
[2020-12-23] MEDS: predniSONE 10 MG TAB PO SCH (08:41)
[2020-12-23] MEDS: buPROPion SR 150 MG TABLET.ER PO SCH (08:41)
[2020-12-23] MEDS: SODIUM BICARBONATE TAB 650 MG TAB PO SCH ×3 (08:42→20:34)
--- NOTE | 2020-12-23 08:56 | US ---
EXAMINATION TYPE: US kidneys/renal and bladder DATE OF EXAM: 12/23/2020 COMPARISON: CT from outside institution 12/20/2020 CLINICAL HISTORY: Assessment acute versus CK D. Exam done portable. EXAM MEASUREMENTS: Right Kidney: 8.1 x 3.0 x 3.6 cm Left Kidney: 8.7 x 3.9 x 3.7 cm Difficult to scan left kidney due to patient has left arm in a sling along her left side Right Kidney: small in size, 4.1 x 2.8 x 2.8cm lateral inferior pole simple cyst, cortical echogenici ty is increased Left Kidney: limited visualization, small in size, 1.9 x 1.5 x 1.8cm hypoechoic area medial mid pole -consistent with extrarenal pelvis Bladder: not fully distended, appears wnl as seen Bilateral Jets seen: no There is no evidence for hydronephrosis at this point in time. No nephrolithiasis is seen. No hung s are identified. The urinary bladder is anechoic. IMPRESSION: Findings consistent with medical renal disease
--- NOTE | 2020-12-23 11:05 | MR ---
MR thoracic spine without contrast HISTORY: Thoracic compression fractures Exam is limited by patient motion. Intravenous contrast was not administered due to patient's inabili ty to cooperate with the exam. Correlation to CT chest 12/20/2020 from outside institution Multiple thoracic compression fractures are noted as on CT greatest at T8-T9, there is no significant spinal stenosis however. There is a resulting kyphosis. Multilevel spondylosis is present. Loss of d isc height is present at multiple intervertebral levels, there is a spinal curvature. Bilateral pleur al effusions are present. Thoracic cord signal is grossly normal. IMPRESSION: Exam somewhat limited. There is no evident spinal stenosis. Findings correspond to CT sca n from outside institution.
[2020-12-23 11:07] VITALS: BMI 19.3
--- NOTE | 2020-12-23 12:07 | P.PN ---
Subjective Progress Note Date: 12/23/20 Principal diagnosis: hx nsclca fall Renal function remains subadequate to undergo restaging exams. Await Bone Scan. Objective - Vital Signs Vital signs: Vital Signs Temp 98.7 F 12/23/20 11:32 Pulse 84 12/23/20 11:32 Resp 16 12/23/20 11:32 BP 110/66 12/23/20 11:32 Pulse Ox 92 L 12/23/20 11:32 Intake & Output 12/22/20 12/23/20 12/23/20 18:59 06:59 18:59 Intake Total 1200 Output Total 750 Balance 450 Weight 45 kg Intake: Intake, IV Titration 900 Amount Sodium Chloride 0.9% 1, 900 000 ml @ 75 mls/hr IV . [id number] PATIENCE Rx#:[id number] Oral 300 Output: Urine 750 Other: Voiding Method Bedpan # Voids 3 - Exam Poor historian, Left eye black Arm sling NAD Head NCAT Lungs: DIminished, No increased effort Heart RR Abdom: NTND Ext: Injury from fall wrist - Labs CBC & Chem 7: 12/22/20 09:38 12/23/20 05:25 Labs: Abnormal Lab Results - Last 24 Hours (Table) 12/23/20 Range/Units 05:25 Chloride 115 H (98-107) mmol/L Carbon Dioxide 16 L (22-30) mmol/L BUN 21 H (7-17) mg/dL Creatinine 1.42 H (0.52-1.04) mg/dL Glucose 70 L (74-99) mg/dL Assessment and Plan (1) Non-small cell lung cancer (NSCLC) Current Visit: Yes Status: Acute Code(s): C34.90 - MALIGNANT NEOPLASM OF UNSP PART OF UNSP BRONCHUS OR LUNG SNOMED Code(s): 160964659 (2) Fall Current Visit: Yes Status: Acute Code(s): W19.XXXA - UNSPECIFIED FALL, INITIAL ENCOUNTER SNOMED Code(s): 4868146 Plan: Plan to continue adequate hydration and further assess for metastaic recurrence to brain with contrasted MRI or CT (MRI Preferred) Normocytic anemia: - WOrk-up in progress Acute Renal Insufficiency: - Likely prerenal dehydration Recurrent Falls:: NSCLCA: - Has not followed up since last year Primary to regarding other acute issues Plan: - Bone scan - Recheck renal function in am - MRI brain and CT staging once renal function improved versus await bone scan and set up outpatient pet.
[2020-12-23] MEDS ORDERED: LACTATED RINGERS 1,000 ML IV SCH (12:45)
--- NOTE | 2020-12-23 13:21 | P.PN ---
Progress Note - Text Progress Note Date: 12/23/20 Patient is seen and examined today at bedside. The patient has some pain around around her mid back and over her left shoulder. She says that she has some global pain at her legs and in her knee but the Pain is being controlled with medication. She has been in bed and she has not been up out of bed. She underwent her MRI of her thoracic spine this morning. She is not yet had her bone scan. Physical Exam Afebrile with stable vital signs Abdomen is soft nontender. Chest has good excursion deep and space expiration She has some tenderness at her mid thoracic spine with palpation. There is no skin breakdown. Her left shoulder has a splint intact Extremities have not had neurologic change from prior to surgery. Calves and thighs were soft nontender without evidence of DVT. Assessment/Plan MRI report shows compression deformities at T8 and T9. I do see some signal change within the vertebrae which may indicate a subacute injury. There is no significant stenosis. I do not appreciate any significant bony erosion or masses. New T8 and T9 compression fractures with thoracic back pain Left proximal humerus fracture status post fall History of metastatic disease The fractures at T8 and T9 appear to be new due to her fall. She has some pain of the areas and I think that she can have some benefit with bracing. We will order a spinal bed TLSO brace for her to be use whenever she is out of bed. I think that she can still use the brace with her approximately humerus injury. I think she can use the thoracic brace underneath the left upper extremity sling. We will have her fitted for this and have provided a prescription for. It is okay for her to mobilize with her brace on. She may remove the brace when she is in bed and for bathing. She had family at bedside as well we discussed this with them. We also discussed possibility of procedure such as kyphoplasty but we will continue conservative management for now and see how she does. When she has her brace is okay from a orthopedic spine standpoint for her to be discharged to home or placement and for us to see her on an outpatient basis for follow-up in approximately 2-3 weeks. We will continue to increase the patient's mobilization with therapy. We will continue pain control with oral or IV medications. We'll continue to follow patient closely.
--- NOTE | 2020-12-23 13:33 | P.PN ---
Progress Note - Text Progress Note Date: 12/23/20 Presenting complaint: Dizziness Hospital course: 75-year-old patient of Dr. Arndt. Chronic stable medical conditions include COPD, rheumatoid arthritis, lung cancer stage IIIB in remission., Anxiety depression. Patient has long-standing history of dizziness. Presented with episode of fall, resulting in L1 vertebral fracture and a closed fracture of the left proximal humerus. Left arm in a sling. Oral intake fair. Patient does have chronic pain. Also has chronic swelling in lower extremities to the right leg. From a prior accident for which she takes diuretics. Today: Patient is daughter at the bedside. Eating some. He got a Xanax earlier today was confused of that. Better now. Review of systems: Was done for constitutional, cardiovascular, GI, pulmonary. relevant finding as above Active Medications Acetaminophen (Acetaminophen Tab 325 Mg Tab) 650 mg PO Q6HR PRN PRN Reason: Fever and/ or Pain Bupropion HCl (Bupropion Sr 150 Mg Tablet.Er) 150 mg PO DAILY [facility] Last Admin: 12/23/20 08:41 Dose: 150 mg Documented by: Citalopram Hydrobromide (Citalopram Hydrobromide 20 Mg Tab) 20 mg PO DAILY [facility] Last Admin: 12/23/20 08:41 Dose: 20 mg Documented by: Enoxaparin Sodium (Enoxaparin 40 Mg/0.4 Ml Syringe) 40 mg SQ DAILY@2000 [facility] Last Admin: 12/22/20 20:17 Dose: 40 mg Documented by: Lactated Ringer's (Lactated Ringers) 1,000 mls @ 125 mls/hr IV .Q8H [facility] Meclizine HCl (Meclizine 25 Mg Tab) 25 mg PO DAILY PRN PRN Reason: Vertigo Nicotine (Nicotine 21mg/24hr Patch) 1 patch TRANSDERM DAILY [facility] Last Admin: 12/23/20 08:41 Dose: 1 patch Documented by: Pantoprazole Sodium (Pantoprazole 40 Mg Tablet) 40 mg PO AC-BRKFST [facility] Last Admin: 12/23/20 08:41 Dose: 40 mg Documented by: Prednisone (Prednisone 10 Mg Tab) 10 mg PO DAILY [facility] Last Admin: 12/23/20 08:41 Dose: 10 mg Documented by: Sodium Bicarbonate (Sodium Bicarbonate Tab 650 Mg Tab) 650 mg PO TID [facility] Last Admin: 12/23/20 08:42 Dose: 650 mg Documented by: Tramadol HCl (Tramadol 50 Mg Tab) 50 mg PO QID PRN PRN Reason: Pain/Discomfort On examination: VITAL SIGNS: 98.7, 84, 16, 110 x 66, 92% room air GENERAL APPEARANCE: BMI 19.4, laying in bed, tired, left arm in a a sling. HEENT: Bruising around the left half of the jaw. EYES: Pupils equal. Conjunctiva normal. NECK: JVD not raised. Mass not palpable. RESPIRATORY: Respiratory effort normal. Lungs decreased breath sounds CARDIOVASCULAR: First and second sounds normal. No edema. MUSCULOSKELETAL: Evidence of severe OA in the hands. Left arm in a sling ABDOMEN: Soft. Liver and spleen not palpable. No tenderness. No mass palpable. PSYCHIATRY: Alert and oriented x3. Mood and affect normal. INVESTIGATIONS, reviewed in the clinical context: December 23: Potassium 4.4 bicarb 16 BUN 21 creatinine 1.42 Ultrasound: Right kidney small in size with increased cortical echogenicity. WBC 6.6 hemoglobin 9.2 platelets 16 potassium 4.1 BUN 24 creatinine 1.38 albumin 3.3 Assessment and plan: -Chronic dizziness from Mnire's disease Rule out additional BPPV and orthostatics. Check orthostatics -Mild protein calorie malnutrition Nutritional supplements -COPD in a current smoker Symptoms controlled -Anxiety depression otherwise specified Continue with Wellbutrin, Celexa, Xanax -GERD Continue with omeprazole -Stage IIIB non-small cell lung carcinoma, status post radiation treatment and chemotherapy. Currently appears to be in remission. Recent PET scan was found to be unremarkable. Being followed by oncology -Chronic nicotine dependence patient cigarette smoker Nicotine patch -Metabolic acidosis from chronic kidney disease Changed to bicarbonate drip with D5W. -Chronic kidney disease, stage III Follow renal function -Anemia of chronic kidney disease -Thrombocytopenia, withbicytopenia -Multiple compression fracture deformities at T7, T8, T9, T11, T12 and L1 on of indeterminate age Follow with orthopedic spine. Conservative management. Pain control. -Closed fracture of left proximal humerus secondary to fall. Has a left arm sling. No surgical intervention. -Chronic rheumatoid arthritis -Fall precautions -Bilateral lower extremity venous insufficiency right greater than left Rajesh wraps Had a very lengthy discussion with the patient and daughter at the bedside. Discussed why diuretics are to be held. We will give IV bicarbonate with gentle hydration. Rajesh wrap lower extremity. telehealth case manager look into discharge planning. Also discussed the importance of taking too many pain medications. Xanax and Dilaudid to be discontinued. Also discussed using an eye pad with a diet screen which is easier to use. Total time spent today about 40 minutes with over 20 minutes of discussion
[2020-12-23] MEDS: DEXTROSE 5% IN WATER 1,000 ML with SODIUM BICARB (1 MEQ/ML) 50 ML IV SCH (13:51)
--- NOTE | 2020-12-23 16:04 | NM ---
EXAMINATION TYPE: NM bone scan whole body DATE OF EXAM: 12/23/2020 COMPARISON: Thoracic MRI 12/23/2020 HISTORY: Staging, thoracic bone pain Delayed whole-body scanning was performed following the injection of 23.7 mCi Tc 99m MDP. Images acq uired 4 hours post injection. Spot images were also obtained. FINDINGS: Bandlike area of activity is noted in the approximate T12 level in keeping with subacute compression fracture. Uptake within the feet, knees right greater than left, wrists, shoulders is likely degenera tive. Soft tissue uptake is within normal limits. Uptake along multiple anterior ribs is likely to be posttraumatic. No definite uptake to suggest metastatic disease. IMPRESSION: Osteoporotic compression fractures are mostly chronic, subacute fractures suspected at T12 level. Cor relate 4 history trauma to the anterior ribs. Probable degenerative uptake.
--- NOTE | 2020-12-23 16:06 | CT ---
EXAMINATION TYPE: CT brain wo con DATE OF EXAM: 12/23/2020 HISTORY: frequent falls, history of lung cancer CT DLP: 1141 mGycm. Automated Exposure Control for Dose Reduction was Utilized. TECHNIQUE: CT scan of the head is performed without contrast. COMPARISON: None. FINDINGS: There is no acute intracranial hemorrhage or midline shift identified. There is moderate diffuse ventricular and sulcal prominence greatest over bilateral frontal lobes . There is mild low- attenuation in the periventricular white matter consistent with chronic small vessel ischemic change. The globes are intact and the visualized sinuses are clear. IMPRESSION: No acute intracranial hemorrhage or midline shift. There is moderate diffuse cerebral a trophy greatest over bilateral frontal lobes and mild chronic small vessel ischemic change noted.
--- NOTE | 2020-12-23 16:22 | XR ---
EXAMINATION TYPE: XR chest 2V DATE OF EXAM: 12/23/2020 COMPARISON: Chest x-ray 07/31/2019 HISTORY: Lung carcinoma, falls TECHNIQUE: Frontal and lateral views of the chest are obtained. FINDINGS: Similar, interstitium is increased. Patchy basilar density is present. Patient is rotated. Central vascularity is prominent. There are overlying artifacts. Suspect there may be a gas-distende d loop of bowel beneath the left hemidiaphragm. Heart size may be accentuated by technique. There is blunting of the costophrenic angles. Aorta is dense. No evident pneumothorax. Pleural thickening susp ected as noted especially in the lateral exam IMPRESSION: Correlate for interstitial edema or interstitial spread of carcinoma. There is bilateral pleural effusions. Difficult to exclude underlying mass. Additional findings above.
[2020-12-23] MEDS ORDERED: ENOXAPARIN 30 MG/0.3 ML SYRINGE SQ SCH (20:00)
[2020-12-24] MEDS: DEXTROSE 5% IN WATER 1,000 ML with SODIUM BICARB (1 MEQ/ML) 50 ML IV SCH (04:53)
[2020-12-24 06:24] LABS: African American GFR (CKD) 45 (>60 ml/min/1.73 sqM); Anion Gap 4 mmol/L; Blood Urea Nitrogen 18 mg/dL (7-17); Calcium 8.3 mg/dL (8.4-10.2); Carbon Dioxide 22 mmol/L (22-30); Chloride 111 mmol/L (98-107); Glucose 82 mg/dL (74-99); Non-African American GFR(CKD) 39 (>60 ml/min/1.73 sqM); Potassium 3.9 mmol/L (3.5-5.1); Sodium 137 mmol/L (137-145)
[2020-12-24] MEDS: SODIUM BICARBONATE TAB 650 MG TAB PO SCH ×2 (08:08→16:40)
[2020-12-24] MEDS: buPROPion SR 150 MG TABLET.ER PO SCH (08:08)
[2020-12-24] MEDS: NICOTINE 21MG/24HR PATCH TRANSDERM SCH (08:08)
[2020-12-24] MEDS: CITALOPRAM HYDROBROMIDE 20 MG TAB PO SCH (08:08)
[2020-12-24] MEDS: predniSONE 10 MG TAB PO SCH (08:08)
[2020-12-24] MEDS: PANTOPRAZOLE 40 MG TABLET PO SCH (08:08)
[2020-12-24 11:16] VITALS: BP 129/78; PULSE 93; RESP 14; TEMP 98.2
--- NOTE | 2020-12-24 15:05 | P.PN ---
Subjective Progress Note Date: 12/24/20 Principal diagnosis: hx nsclca fall Planning doscharge today, she will be set up for PET scan, MRI Brain (fluids post contrast as long as renal function ok) and then follow-up with Dr. Cyndie kelley after restaging Objective - Vital Signs Vital signs: Vital Signs Temp 98.2 F 12/24/20 11:12 Pulse 93 12/24/20 11:12 Resp 14 12/24/20 11:12 BP 129/78 12/24/20 11:12 Pulse Ox 92 L 12/24/20 11:12 Intake & Output 12/23/20 12/24/20 12/24/20 18:59 06:59 18:59 Intake Total 1200 Balance 1200 Weight 45 kg Intake: Intake, IV Titration 900 Amount Dextrose 5% in Water 1, 900 000 ml @ 75 mls/hr IV . Q14H PATIENCE with Sodium Bicarb (1 Meq/ml) 50 ml Rx#:[id number] Oral 300 Other: Voiding Method Bedpan Diaper # Voids 3 4 - Exam Poor historian, Left eye black Arm sling NAD Head NCAT Lungs: DIminished, No increased effort Heart RR Abdom: NTND Ext: Injury from fall wrist - Labs CBC & Chem 7: 12/22/20 09:38 12/24/20 05:32 Labs: Abnormal Lab Results - Last 24 Hours (Table) 12/24/20 Range/Units 05:32 Chloride 111 H (98-107) mmol/L BUN 18 H (7-17) mg/dL Creatinine 1.34 H (0.52-1.04) mg/dL Calcium 8.3 L (8.4-10.2) mg/dL Assessment and Plan (1) Non-small cell lung cancer (NSCLC) Current Visit: Yes Status: Acute Code(s): C34.90 - MALIGNANT NEOPLASM OF UNS P PART OF UNSP BRONCHUS OR LUNG SNOMED Code(s): 955925801 (2) Fall Current Visit: Yes Status: Acute Code(s): W19.XXXA - UNSPECIFIED FALL, INITIAL ENCOUNTER SNOMED Code(s): 8399889 Plan: Plan to continue adequate hydration and further assess for metastaic recurrence to brain with contrasted MRI or CT (MRI Preferred) Normocytic anemia: - WOrk-up in progress Acute Renal Insufficiency: - Likely prerenal dehydration Recurrent Falls:: NSCLCA: - Has not followed up since last year Primary to regarding other acute issues Plan: - Bone scan without evidence of metastatic disease Planning doscharge today, she will be set up for PET scan, MRI Brain (fluids post contrast as long as renal function ok) and then follow-up with Dr. Cyndie kelley after restaging
--- NOTE | 2020-12-24 15:17 | P.DS ---
Providers Date of admission: 12/21/20 01:14 Expected date of discharge: 12/24/20 Attending physician: Charles Petit Consults: 12/21/20 03:11 Consult Physician Routine Consulting Provider: Kermit Freitas Consult Reason/Comments: History Lung Cancer, new lung mass on CT at [facility] Do you want consulting provider notified?: Yes, Notify in am 12/21/20 10:55 Consult Physician Routine Consulting Provider: Stevie Rao Consult Reason/Comments: t-11 fx and humerous fx Do you want consulting provider notified?: Yes Primary care physician: [facility] Course: Presenting complaint: Dizziness Hospital course: 75-year-old patient of Dr. Arndt. Chronic stable medical conditions include COPD, rheumatoid arthritis, lung cancer stage IIIB in remission., Anxiety depression. Patient has long-standing history of dizziness. Presented with episode of fall, resulting in L1 vertebral fracture and a closed fracture of the left proximal humerus. Left arm in a sling. Oral intake fair. Patient does have chronic pain. Also has chronic swelling in lower extremities to the right leg. From a prior accident for which she takes diuretics. She's been advised not to take diuretics but instead use Rajesh wraps to keep the swelling in the lower extremity down. Patient did have a thoracic spine MRI. Seen by Dr. De La Garza from orthopedic spine. His opinion is that T8 and T9 compression fracture that her actually acute. This should be managed with the spinal bed TLSO brace whenever she is out of bed. He will follow-up with the same. Today: Pain is reasonably well controlled. Encouraged to eat. Better now. Kyphoplasty may be a distant option. Discussed with social service coordinator. I did discuss with the patient. Patient is not on OPDIVO not, will she be taking it for the near future. Patient will have outpatient PET scan and MRI of the brain and she'll follow with RANDY Riley AN OUTPATIENT. Discussion and discharge planning more than 35 minutes Consultation: Dr. Fischer from oncology Dr. De La Garza from orthopedic spine On examination: VITAL SIGNS: 98.2, 93, 14, 129/78, 92% room air GENERAL APPEARANCE: , laying in bed, tired, left arm in a a sling. HEENT: Bruising around the left half of the jaw. EYES: Pupils equal. Conjunctiva normal. NECK: JVD not raised. Mass not palpable. RESPIRATORY: Respiratory effort normal. Lungs decreased breath sounds CARDIOVASCULAR: First and second sounds normal. No edema. MUSCULOSKELETAL: Evidence of severe OA in the hands. Left arm in a sling ABDOMEN: Soft. Liver and spleen not palpable. No tenderness. No mass palpable. PSYCHIATRY: Alert and oriented x3. Mood and affect normal. INVESTIGATIONS, reviewed in the clinical context: December 24: Potassium 3.9 bicarb 22 creatinine 1.34 December 23: Potassium 4.4 bicarb 16 BUN 21 creatinine 1.42 Ultrasound: Right kidney small in size with increased cortical echogenicity. WBC 6.6 hemoglobin 9.2 platelets 16 potassium 4.1 BUN 24 creatinine 1.38 albumin 3.3 Assessment and plan: -Chronic dizziness from Mnire's disease Given IV fluids. Orthostatics ruled out. -Mild protein calorie malnutrition Nutritional supplements -COPD in a current smoker Symptoms controlled -Anxiety depression otherwise specified Continue with Wellbutrin, Celexa, -GERD Continue with omeprazole -Stage IIIB non-small cell lung carcinoma, status post radiation treatment and chemotherapy. Currently appears to be in remission. Recent PET scan was found to be unremarkable. Patient follow-up as an outpatient with Dr. Van -Chronic nicotine dependence patient cigarette smoker Nicotine patch -Metabolic acidosis from chronic kidney disease Given bicarbonate-corrected -Chronic kidney disease, stage III Follow renal function -Anemia of chronic kidney disease -Thrombocytopenia, withbicytopenia -Multiple compression fracture deformities at T7, T8, T9, T11, T12 and L1 on of indeterminate age. T8-T9 possibly acute fracture TLSO brace with activity. Follow-up with Dr. De La Garza's outpatient -Closed fracture of left proximal humerus secondary to fall. Has a left arm sling. No surgical intervention. -Chronic rheumatoid arthritis -Fall precautions -Bilateral lower extremity venous insufficiency right greater than left Rajesh wraps Disposition: [facility] Plan - Discharge Summary New Discharge Prescriptions: New Nicotine 21Mg/24Hr Patch [Habitrol] 1 patch TRANSDERM DAILY #14 patch predniSONE 10 mg PO DAILY tab Acetaminophen Tab [Tylenol] 650 mg PO Q6HR PRN tab PRN Reason: Fever And/ Or Pain Continue Citalopram Hydrobromide [Citalopram HBr] 20 mg PO DAILY buPROPion SR [Wellbutrin SR] 150 mg PO DAILY Omeprazole 20 mg PO BID Discontinued ALPRAZolam [Xanax] 1 mg PO TID PRN PRN Reason: Anxiety Bumetanide 2 mg PO BID PRN PRN Reason: as tolerated Meclizine HCl 25 mg PO DAILY PRN PRN Reason: Vertigo Furosemide [Lasix] 20 mg PO DAILY Discharge Medication List Citalopram Hydrobromide [Citalopram HBr] 20 mg PO DAILY 12/13/16 [History] Omeprazole 20 mg PO BID 12/21/20 [History] buPROPion SR [Wellbutrin SR] 150 mg PO DAILY 12/21/20 [History] Acetaminophen Tab [Tylenol] 650 mg PO Q6HR PRN tab 12/24/20 [Rx] Nicotine 21Mg/24Hr Patch [Habitrol] 1 patch TRANSDERM DAILY #14 patch 12/24/20 [Rx] predniSONE 10 mg PO DAILY tab 12/24/20 [Rx] Follow up Appointment(s)/Referral(s): Chloe Larose DO [Doctor of Osteopathic Medicine] - 2 Weeks Activity/Diet/Wound Care/Special Instructions: Maintain arm sling to left upper extremity. Rest and ice for swelling. Please follow-up with [facility] and call with any questions or concerns, .
== END 2020-12-24 18:35 | disposition home or self-care (01) | DRG 563 ==
LOC: 5NMEDONC 12-21 01:14
PROVIDERS: ADMIT Hospitalist; ATTEND Hospitalist
DX: S42.309A Unspecified fracture of shaft of humerus, unspecified arm, initial encounter for closed fracture (principal); S32.019A Unspecified fracture of first lumbar vertebra, initial encounter for closed fracture; N17.9 Acute kidney failure, unspecified; E44.1 Mild protein-calorie malnutrition; M48.54XA Collapsed vertebra, not elsewhere classified, thoracic region, initial encounter for fracture; E87.2 Acidosis; C34.90 Malignant neoplasm of unspecified part of unspecified bronchus or lung; L03.115 Cellulitis of right lower limb; C77.3 Secondary and unspecified malignant neoplasm of axilla and upper limb lymph nodes; Z68.1 Body mass index [BMI] 19.9 or less, adult; N18.30 Chronic kidney disease, stage 3 unspecified; T45.1X5A Adverse effect of antineoplastic and immunosuppressive drugs, initial encounter; R29.6 Repeated falls; R32 Unspecified urinary incontinence; I87.2 Venous insufficiency (chronic) (peripheral); K59.00 Constipation, unspecified; M19.042 Primary osteoarthritis, left hand; M19.041 Primary osteoarthritis, right hand; H81.09 Meniere's disease, unspecified ear; J44.9 Chronic obstructive pulmonary disease, unspecified; M06.9 Rheumatoid arthritis, unspecified; F41.8 Other specified anxiety disorders; G89.29 Other chronic pain; K21.9 Gastro-esophageal reflux disease without esophagitis; I87.8 Other specified disorders of veins; D63.1 Anemia in chronic kidney disease; F17.210 Nicotine dependence, cigarettes, uncomplicated; D69.6 Thrombocytopenia, unspecified; F41.0 Panic disorder [episodic paroxysmal anxiety]; Z20.822 Contact with and (suspected) exposure to COVID-19; W19.XXXA Unspecified fall, initial encounter; Z85.118 Personal history of other malignant neoplasm of bronchus and lung; Z92.3 Personal history of irradiation; Z79.899 Other long term (current) drug therapy; Z90.710 Acquired absence of both cervix and uterus; Z91.81 History of falling; Z91.041 Radiographic dye allergy status; Z87.19 Personal history of other diseases of the digestive system; Z88.8 Allergy status to other drugs, medicaments and biological substances; Z88.6 Allergy status to analgesic agent
CPT/HCPCS: 70450; 71046; 72146; 76770; 78306; 80048; 80053; 81001; 85025; 85027